=== PATIENT | male | born 1945 | race Caucasian/White ===

== ENCOUNTER 2024-10-02 16:00 | Inpatient (IN) | payer MEDICARE, MEDICAID ==
[~2024-10-02] VITALS: Ht 177.8 cm; Wt 93.0 kg
[2024-10-02 17:00] LABS: BASOPHILS % (AUTO) 0.3 % (0.0-2.0); EOSINOPHILS # (AUTO) 0.1 K/uL (0.0-0.7); EOSINOPHILS % (AUTO) 1.2 % (0.0-6.0); HEMATOCRIT 34 % (39-51); LYMPHOCYTES # (AUTO) 1.7 K/uL (0.8-4.8); LYMPHOCYTES % (AUTO) 14.5 % (20.0-44.0); MEAN CORPUSCULAR HEMOGLOBIN 27 PG (26.0-33.0); MEAN CORPUSCULAR HGB CONC 33 g/dl (31.0-36.0); MEAN CORPUSCULAR VOLUME 83 fL (80-96); MONOCYTES # (AUTO) 1.2 K/uL (0.1-1.30); MONOCYTES % (AUTO) 10.4 % (2.0-12.0); NEUTROPHILS # (AUTO) 8.8 K/uL (1.8-8.9); NEUTROPHILS % (AUTO) 73.6 % (43.0-81.0); PLATELET COUNT (AUTO) 143 K/uL (150-450); RED BLOOD CELL COUNT(AUTO) 4.03 MIL/uL (4.5-6.0); RED CELL DISTRIBUTION WIDTH 17.9 % (11.5-15.0); WHITE BLOOD COUNT (AUTO) 11.9 K/uL (4.3-11.0)
[2024-10-02 17:18] LABS: ALBUMIN 3.6 g/dL (3.4-5.0); BILIRUBIN,DIRECT 0.2 mg/dL (0.0-0.2); BILIRUBIN,TOTAL 0.4 mg/dL (0.2-1.0); CALCIUM, SERUM 9.2 mg/dL (8.5-10.1); CREATININE 3.8 mg/dL (0.6-1.3); TOTAL PROTEIN, SERUM 7.6 g/dL (6.4-8.2)
[2024-10-02 17:22] LABS: POTASSIUM 7.5 mmol/L (3.5-5.1)
[2024-10-02] MEDS: IV NS 0.9% 1,000 ML BAG IV ONE (17:25)
[2024-10-02 17:28] LABS: ERYTHROCYTE SEDIMENTATION RATE 39 MM/HR (0-20)
[2024-10-02] MEDS ORDERED: SODIUM BICARBONATE SYR 50 MEQ/50 ML DISP.SYRIN ONE (17:32)
[2024-10-02] MEDS ORDERED: INSULIN REGULAR, HUMAN 100 UNIT/ML 10 ML VIAL ONE (17:33)
[2024-10-02] MEDS ORDERED: DEXTROSE 50%-WATER 50 ML DISP.SYRIN ONE (17:33)
[2024-10-02] MEDS: SODIUM BICARBONATE SYR 50 MEQ/50 ML DISP.SYRIN IV ONE (17:35)
[2024-10-02 17:36] LABS: INR 1.4 (0.91-1.10); PARTIAL THROMBOPLASTIN TIME 30.3 SEC (24.3-34.3); PROTHROMBIN TIME 14.5 SECS (9.2-11.1)
[2024-10-02] MEDS ORDERED: ALBUTEROL FS 2.5 MG/3 ML VIAL.NEB ONE (17:36)
[2024-10-02] MEDS: INSULIN REGULAR, HUMAN 100 UNIT/ML 10 ML VIAL IV ONE (17:40)
[2024-10-02] MEDS: DEXTROSE 50%-WATER 50 ML DISP.SYRIN IV ONE (17:40)
[2024-10-02 17:41] VITALS: O2SAT 98
[2024-10-02] MEDS: ALBUTEROL FS 2.5 MG/3 ML VIAL.NEB NEB ONE (17:41)
[2024-10-02 17:49] VITALS: O2SAT 99
[2024-10-02] MEDS: CEFEPIME 1 GM in IV D5W 50 ML IV ONE (17:50)
[2024-10-02] MEDS ORDERED: SODIUM ZIRCONIUM CYCLOSILICATE 10 GM POWD.PACK ONE (17:53)
[2024-10-02] MEDS: SODIUM ZIRCONIUM CYCLOSILICATE 10 GM POWD.PACK PO ONE (17:55)
[2024-10-02] MEDS: VANCOMYCIN 1 GM in IV D5W 250 ML IV ONE (18:40)
[2024-10-02 20:26] LABS: CALCIUM, SERUM 8.4 mg/dL (8.5-10.1); CREATININE 3.6 mg/dL (0.6-1.3); POTASSIUM 5.8 mmol/L (3.5-5.1)
[2024-10-02] MEDS ORDERED: ACETAMINOPHEN 325 MG TABLET PO PRN (21:00)
[2024-10-02] MEDS ORDERED: ONDANSETRON HCL/PF 4 MG/2 ML VIAL IVP PRN (21:00)
[2024-10-02] MEDS ORDERED: VANCOMYCIN 1 GM /D5W 250 ML PB IV ONE (22:55)
[2024-10-02] MEDS: SODIUM POLYSTYRENE SULFONATE 15 G/60 ML BOTTLE PO ONE (23:01)
[2024-10-02] MEDS: VANCOMYCIN 750 MG in IV D5W 250 ML IV ONE (23:03)
[2024-10-02] MEDS: HEPARIN SODIUM, PORCINE 5000 UNITS/1 ML VIAL SQ SCH (23:05)
[2024-10-02] MEDS: IV NS 0.9% 1,000 ML IV PRN (23:05)
[2024-10-03] VITALS: BP 105/55; TEMP 98.2; O2SAT 98
[2024-10-03 00:59] LABS: CALCIUM, SERUM 8.5 mg/dL (8.5-10.1); CREATININE 3.3 mg/dL (0.6-1.3); POTASSIUM 5.6 mmol/L (3.5-5.1)
[2024-10-03 04:00] VITALS: BP 100/55; TEMP 97.9; O2SAT 98
[2024-10-03 07:59] LABS: BASOPHILS % (AUTO) 0.4 % (0.0-2.0); EOSINOPHILS # (AUTO) 0.2 K/uL (0.0-0.7); HEMATOCRIT 32 % (39-51); HEMOGLOBIN 10.9 g/dL (13.5-17.5); LYMPHOCYTES % (AUTO) 24.1 % (20.0-44.0); MEAN CORPUSCULAR HEMOGLOBIN 29 PG (26.0-33.0); MEAN CORPUSCULAR HGB CONC 34 g/dl (31.0-36.0); MEAN CORPUSCULAR VOLUME 84 fL (80-96); MONOCYTES # (AUTO) 0.9 K/uL (0.1-1.30); MONOCYTES % (AUTO) 10.7 % (2.0-12.0); NEUTROPHILS # (AUTO) 5.2 K/uL (1.8-8.9); NEUTROPHILS % (AUTO) 61.8 % (43.0-81.0); PLATELET COUNT (AUTO) 97 K/uL (150-450); RED CELL DISTRIBUTION WIDTH 18.2 % (11.5-15.0); WHITE BLOOD COUNT (AUTO) 8.3 K/uL (4.3-11.0)
[2024-10-03 08:00] VITALS: BP 118/57; TEMP 98.1; O2SAT 97
[2024-10-03 08:26] LABS: CALCIUM, SERUM 8.8 mg/dL (8.5-10.1); CREATININE 2.9 mg/dL (0.6-1.3); PHOSPHORUS 4.3 mg/dL (2.5-4.9); POTASSIUM 5.6 mmol/L (3.5-5.1)
[2024-10-03 09:13] LABS: ANISOCYTOSIS 1+; EOSINOPHILS % (MANUAL) 7 % (0-4); LYMPHOCYTES % (MANUAL) 22 % (16-48); MONOCYTES % (MANUAL) 8 % (0-11.0); NEUTROPHILS % (MANUAL) 63 (42-76); PLATELET ESTIMATE DECREASED
[2024-10-03] MEDS ORDERED: Z GUARD REMEDY 4 OZ OINT TP PRN (10:00)
[2024-10-03] MEDS: Z GUARD REMEDY 4 OZ OINT TP SCH (11:02)
[2024-10-03] MEDS: CLOTRIMAZOLE 1% 15 GM TUBE TP SCH (11:02)
[2024-10-03] MEDS: SODIUM ZIRCONIUM CYCLOSILICATE 10 GM POWD.PACK PO SCH (13:25)
[2024-10-03 16:00] VITALS: BP 120/66; TEMP 98.1; O2SAT 97
[2024-10-03 16:20] LABS: CALCIUM, SERUM 8.4 mg/dL (8.5-10.1); CREATININE 2.4 mg/dL (0.6-1.3); POTASSIUM 4.8 mmol/L (3.5-5.1)
[2024-10-03] MEDS: CEFEPIME 1 GM in IV D5W 50 ML IV SCH (17:03)
[2024-10-03 20:00] VITALS: BP 121/56; TEMP 98.4; O2SAT 98
[2024-10-04 04:00] VITALS: BP 125/55; TEMP 98.2; O2SAT 97
[2024-10-04] MEDS ORDERED: VANCOMYCIN 750 MG in IV D5W 250 ML IV SCH (11:00)
== END 2024-10-04 10:30 | disposition left against medical advice (07) | DRG 638 ==
LOC: ER 16:10 → ICU 19:38 → TELE1 21:13 → MEDSG1 10-03 10:10
PROVIDERS: ADMIT Nurse Practitioner Acute Care; ATTEND Internal Medicine
DX: E11.69 Type 2 diabetes mellitus with other specified complication (principal); E87.1 Hypo-osmolality and hyponatremia; M86.8X7 Other osteomyelitis, ankle and foot; I13.0 Hypertensive heart and chronic kidney disease with heart failure and stage 1 through stage 4 chronic kidney disease, or unspecified chronic kidney disease; E11.621 Type 2 diabetes mellitus with foot ulcer; L97.519 Non-pressure chronic ulcer of other part of right foot with unspecified severity; I11.0 Hypertensive heart disease with heart failure; I50.9 Heart failure, unspecified; N18.9 Chronic kidney disease, unspecified; D64.9 Anemia, unspecified; E11.22 Type 2 diabetes mellitus with diabetic chronic kidney disease; E86.9 Volume depletion, unspecified; N17.0 Acute kidney failure with tubular necrosis; E87.5 Hyperkalemia; J44.9 Chronic obstructive pulmonary disease, unspecified; M89.8X9 Other specified disorders of bone, unspecified site; S00.03XA Contusion of scalp, initial encounter; S62.602A Fracture of unspecified phalanx of right middle finger, initial encounter for closed fracture; W01.0XXA Fall on same level from slipping, tripping and stumbling without subsequent striking against object, initial encounter; Y92.89 Other specified places as the place of occurrence of the external cause; Z95.0 Presence of cardiac pacemaker; Z99.3 Dependence on wheelchair; Z53.29 Procedure and treatment not carried out because of patient's decision for other reasons
CPT/HCPCS: 36415; 70450-TC; 71045-TC; 72170-TC; 73130-TC; 73630-TC; 76770-TC; 80048-TC; 80076-TC; 83605-TC; 83735-TC; 84100-TC; 85025-TC; 85652-TC; 85730-TC; 87040-TC; 87081-TC; 93926-TC; 94799-TC; A4223; A6403; G0378; J0692; J1644; J1815; J3370; J3371; J3490; J7030; J7050; J7060